=== PATIENT | female | born 1965 | race Caucasian/White ===

== ENCOUNTER 2025-03-04 21:23 | Inpatient (IN) | payer OTHER, SELFPAY ==
[2025-03-04 21:25] VITALS: BP 148/87; PULSE 83; RESP 18; TEMP 36.2; O2SAT 96
[2025-03-04 21:41] VITALS: BMI 42.5
[2025-03-04 22:30] VITALS: BP 125/64; PULSE 84; PULSE 86; RESP 18; TEMP 36.6; O2SAT 100
[2025-03-04 22:39] LABS: Hematocrit 45.8 % (37-47); Hemoglobin 15.4 g/dL (12.0-15.0); Immature Granulocytes Count 0.060 X10^3/uL (0.0-0.0); Mean Corp Hgb Conc 33.6 g/dL (32-36); Mean Corpuscular Volume 95.0 fL (81-99); Mean Platelet Vol. 9.1 fl (6.2-12.0); NRBC Flagged by Analyzer 0 % (0-5); Platelet Count 298 K/mm3 (150-450); RBC Distribution Width CV 13.4 % (11.6-14.6); RBC Distribution Width SD 47.4 fl (35.1-43.9); Red Blood Count 4.82 M/mm3 (4.2-5.4); White Blood Count 7.4 K/mm3 (4.4-11.0)
[2025-03-04 22:58] LABS: Barbiturate Urine NEGATIVE (< 200 ng/mL); Benzodiazepine Urine NEGATIVE (< 200 ng/mL); PCP Urine NEGATIVE (< 25 ng/mL); THC Urine NEGATIVE (< 50 ng/mL)
--- NOTE | 2025-03-04 23:00 | EX.ED.DYSGE1 ---
HPI History of Present Illness Chief Complaint: Substance Abuse Narrative Narrative: Patient is a 59-year-old female with past medical history of alcohol abuse, depression who presents to the emergency department for alcohol detox. Patient states that she has been drinking heavily for the last 5 days she states that she has been drinking with 1-1/2 bottles of wine and notes that these are large bottles. She states that this was recently her son's anniversary of his causing her to relapse she states that she has been sober for approximately 3 years now. Patient states that she has gone through alcohol withdrawal and has never had seizures nor as she ended up in the ICU. [facility] Medical History History of ETOH abuse Depression Home Medications ?Medication ?Instructions ?Recorded ?Last Taken ?Type aripiprazole 5 mg tablet (Abilify) 5 mg PO DAILY 03/04/25 Unknown History escitalopram oxalate 20 mg tablet 20 mg PO DAILY 03/04/25 Unknown History (Lexapro) quetiapine 100 mg tablet (Seroquel) 100 mg PO QHS 03/04/25 Unknown History trazodone 100 mg tablet 100 mg PO QHS 03/04/25 Unknown History Allergy/AdvReac Type Severity Reaction Status Date / Time No Known Allergies Allergy Verified 03/04/25 21:25 Surgical History Hx of tonsillectomy Hx of inguinal hernia repair Social History Smoking Status: Never smoker ROS ROS ED ROS Narrative Constitutional: Denies any fevers, chills, headaches Eyes: Denies change in vision double vision blurry vision Cardiovascular: Denies chest pain Respiratory: Denies coughing wheezing shortness of breath Abdomen: Denies abdominal pain nausea vomit diarrhea : Denies any urinary symptoms Neurological: Denies any numbness, wheeze, tingling Musculoskeletal: Denies back pain Skin: Denies any rashes or lesions EXAM Physical Exam Narrative Exam Narrative: General: Patient was lying in bed rest comfortably did not appear in acute distress Head: Atraumatic, normocephalic Eyes: PERRL bilaterally, EOMI black no conjunctival injection noted Neck: Soft, supple, trachea midline Cardiovascular: Regular rate and rhythm no murmurs gallops rubs noted Respiratory: Clear to auscultation bilaterally Abdomen: Soft, nontender, no tenderness to palpation Extremities: +5/5 strength noted in the bilateral upper and lower extremities Neurological: Patient follow commands knew that she was at [facility] the year is 2024 Skin: Warm, dry, intact no rashes or lesions noted Const Vital Signs: 03/04/25 21:25 Temperature 97.1 F L Temperature Source Temporal Pulse Rate 83 Respiratory Rate 18 Blood Pressure 148/87 H Blood Pressure Mean 107 Pulse Ox 96 Oxygen Delivery Method Room Air MDM MDM MDM Narrative Medical decision making narrative: Patient is a 59-year-old female who presented to the emergency department chief complaint of wanting alcohol detox. On the differential diagnose includes but not limited to alcohol intoxication, depression. Patient CBC reviewed and was largely unremarkable no evidence leukocytosis white blood count normal at 7.4, hemoglobin 15.4, plate count was noted be 298. Patient sodium was 143, potassium normal at 4.4, creatinine was 0.61. Patient's drug screen was negative. Patient alcohol level pending. Will discuss case with hospitalist for admission. Spoke with Dr. South for admission who accept patient. Patient notified is agreeable spinal course concerns answered. Lab Data Labs: Laboratory Results - last 24 hr 03/04/25 03/04/25 22:04 22:32 WBC 7.4 RBC 4.82 Hgb 15.4 H Hct 45.8 MCV 95.0 MCH 32.0 MCHC 33.6 RDW Std Deviation 47.4 H RDW Coeff of Debra 13.4 Plt Count 298 MPV 9.1 Immature Gran % (Auto) 0.800 Neut % (Auto) 70.1 H Lymph % (Auto) 25.9 [place] % (Auto) 2.7 Eos % (Auto) 0.1 Baso % (Auto) 0.4 Absolute Neuts (auto) 5.2 Absolute Lymphs (auto) 1.91 Nucleated RBC % 0 Sodium 143 Potassium 4.4 Chloride 107 Carbon Dioxide 20.0 L Anion Gap 16 H BUN 16 Creatinine 0.61 L Estim Creat Clear Calc 143.25 Est GFR (MDRD) Non-Af 104 BUN/Creatinine Ratio 26.1 H Glucose 131 H Calcium 8.4 Urine Opiates Screen NEGATIVE U Buprenorphine Qual NEGATIVE Ur Oxycodone Screen NEGATIVE Urine Methadone Screen NEGATIVE Urine Fentanyl Screen NEGATIVE Ur Barbiturates Screen NEGATIVE Ur Phencyclidine Scrn NEGATIVE Ur Amphetamines Screen NEGATIVE U Benzodiazepines Scrn NEGATIVE Urine Cocaine Screen NEGATIVE U Cannabinoids Screen NEGATIVE Discharge Plan Triage Chief Complaint: Substance Abuse ED Provider: Silviano Bowman Dx/Rx/DC Orders Clinical Impression: Depression, Alcohol abuse Prescriptions: No Action escitalopram oxalate [Lexapro] 20 mg tablet 20 mg PO DAILY quetiapine [Seroquel] 100 mg tablet 100 mg PO QHS trazodone 100 mg tablet 100 mg PO QHS aripiprazole [Abilify] 5 mg tablet 5 mg PO DAILY Primary Care Provider: Saul Reina Referrals: Saul Reina MD [Primary Care Provider] - Print Language: Greek Disposition Disposition: Acute Care Hospital [facility]
[2025-03-04 23:01] LABS: Anion Gap 16 (5-15); BUN 16 mg/dL (4-19); BUN/Creat Ratio 26.1 RATIO (10-20); Calcium,Total 8.4 mg/dL (7.6-11.0); Carbon Dioxide 20.0 mmol/L (21.0-32.0); Chloride 107 mmol/L (98-108); Estimated Creatinine Clearance 143.25 ml/min (50-250); Glucose 131 mg/dL (70-99); Potassium 4.4 mmol/L (3.3-5.1)
--- NOTE | 2025-03-04 23:13 | HP.PCM_ITS ---
HPI - General General Date of Admission: 03/04/25 Date of Service: 03/04/25 Chief Complaint: Alcohol abuse requesting detoxification HPI Narrative LAW CHRISTY, is a 59 F who presents to the emergency room with chief complaint of alcohol intoxication requesting withdrawal support for detox. Patient has a significant past medical history of alcohol abuse drinking approximately a large bottle and a half of of wine daily for the past 5 days. Patient has been sober for the proximately 3 years but recently relapsed due to depression and thoughts of her son's passing. Patient denies any chest pain, shortness of breath fevers or chills nausea vomiting or diarrhea at present time. Last time patient went through rehabilitation she did not require ICU. Patient denies any other illicit medications as well. [facility] Medical History History of ETOH abuse Depression Home Medications ?Medication ?Instructions ?Recorded ?Last Taken ?Type aripiprazole 5 mg tablet (Abilify) 5 mg PO DAILY 03/04 Unknown History escitalopram oxalate 20 mg tablet 20 mg PO DAILY 03/04 Unknown History (Lexapro) quetiapine 100 mg tablet (Seroquel) 100 mg PO QHS 02/06 04/01 Unknown History trazodone 100 mg tablet 100 mg PO QHS 03/04/25 Unkno wn History Allergy/AdvReac Type Severity Reaction Status Date / Time No Known Allergies Allergy Verified 03/04/25 21:25 Surgical History Hx of tonsillectomy Hx of inguinal hernia repair Social History Smoking Status: Never smoker ROS Constitutional Constitutional: Denies chills or fever(s) Eyes Eyes: Denies blurry vision ENT HEENT: Denies abnormal hearing Cardiovascular Cardiovascular: Denies chest pain Respiratory/Chest Respiratory/Chest: Denies shortness of breath at rest Gastrointestinal Gastrointestinal: Denies abdominal pain Genitourinary Genitourinary: Denies dysuria Musculoskeletal Musculoskeletal: Denies back pain Integumentary Integumentary: Reports dry skin Neurologic Neurologic: Denies abnormal speech Psychiatric Psychiatric: Reports depression Vital Signs Vital Signs Vital Signs: 03/04/25 21:25 Temperature 97.1 F L Temperature Source Temporal Pulse Rate 83 Respiratory Rate 18 Blood Pressure 148/87 H Blood Pressure Mean 107 Pulse Ox 96 Oxygen Delivery Method Room Air Weight Weight: 280 lb 3.32 oz Body Mass Index (BMI) 42.5 Physical Exam Const alert and no apparent distress General Appearance: cooperative and well developed HEENT normocephalic and head/scalp atraumatic Eyes PERRL Lymph Lymphatic: no lymphedema noted Resp normal respiratory effort Cardio regular rate, regular rhythm, S1 normal heart sound and S2 normal heart sound GI normal to inspection, nondistended, normoactive bowel sounds Extremity normal capillary refill Skin General Skin Exam: turgor normal Neuro no focal motor deficits and no sensory deficits noted Psych Mood & Affect: depressed Results Lab / Micro Data 03/04/25 22:32 03/04/25 22:32 Labs: Laboratory Results - last 24 hr 03/04/25 22:04: Urine Opiates Screen NEGATIVE, U Buprenorphine Qual NEGATIVE, Ur Oxycodone Screen NEGATIVE, Urine Methadone Screen NEGATIVE, Urine Fentanyl Screen NEGATIVE, Ur Barbiturates Screen NEGATIVE, Ur Phencyclidine Scrn NEGATIVE, Ur Amphetamines Screen NEGATIVE, U Benzodiazepines Scrn NEGATIVE, Urine Cocaine Screen NEGATIVE, U Cannabinoids Screen NEGATIVE 03/04/25 22:32: WBC 7.4, RBC 4.82, Hgb 15.4 H, Hct 45.8, MCV 95.0, MCH 32.0, MCHC 33.6, RDW Std Deviation 47.4 H, RDW Coeff of Debra 13.4, Plt Count 298, MPV 9.1, Immature Gran % (Auto) 0.800, Neut % (Auto) 70.1 H, Lymph % (Auto) 25.9, [place] % (Auto) 2.7, Eos % (Auto) 0.1, Baso % (Auto) 0.4, Absolute Neuts (auto) 5.2, Absolute Lymphs (auto) 1.91, Nucleated RBC % 0, Sodium 143, Potassium 4.4, Chloride 107, Carbon Dioxide 20.0 L, Anion Gap 16 H, BUN 16, Creatinine 0.61 L, Estim Creat Clear Calc 143.25, Est GFR (MDRD) Non-Af 104, BUN/Creatinine Ratio 26.1 H, Glucose 131 H, Calcium 8.4 Assessment & Plan Assessment/Plan (1) Alcohol abuse: (2) Depression: PLAN: Plan 1 alcohol abuse?requesting detoxification?admit patient to medical surgical floor Place patient on [facility] protocol and consult wrapper caser for discharge planning for post discharge care 2. Depression?continue routine antidepressant medication 3. DVT prophylaxis?patient at low risk presently and is ambulatory Charges/Coding Visit Charges Inpatient E&M: 73721 Init Hosp L2
[2025-03-04 23:22] LABS: Alcohol, Blood (Medical)-Serum 253.0 mg/dL (<=10.0)
[2025-03-04 23:49] VITALS: BP 121/67; PULSE 89; RESP 20; TEMP 36.6; O2SAT 94; BMI 41.8
[2025-03-05] MEDS: hydrOXYzine PAM 25 MG Capsule 50 MG PO (00:33)
[2025-03-05] MEDS: 0.9% Saline Lock 10 ML Syringe IV (00:33)
[2025-03-05 04:39] VITALS: BP 132/77; PULSE 88; RESP 16; TEMP 37.2; O2SAT 93
[2025-03-05 08:09] VITALS: BP 165/89; PULSE 98; RESP 18; TEMP 36.9; O2SAT 95
[2025-03-05] MEDS: Thiamine Hydrochloride 100 MG Tablet PO (08:15)
--- NOTE | 2025-03-05 08:23 | PCM.PN.HOSP ---
Subjective Subjective CIWA score 4, continue with the Ativan taper as she is on Abilify which can interact with phenobarbital Objective Data Objective Data Vital Signs: Vital Signs Temp Pulse Resp BP Pulse Ox O2 Del Method 98.4 F 98 18 165/89 H 95 Room Air 03/05/25 08:09 03/05/25 08:09 03/05/25 08:09 03/05/25 08:09 03/05/25 08:09 03/05/25 08:09 Oxygen Delivery Method Room Air Weight: 275 lb 9.245 oz Body Mass Index (BMI) 41.8 Intake & Output: Intake and Output for Last 24 Hours 03/04/25 03/05/25 03/06/25 03:59 03:59 03:59 Intake Total 400 / 400 Balance 400 / 400 Lab / Micro Data 03/04/25 22:32 03/04/25 22:32 Labs: Laboratory Results - last 24 hr 03/04/25 22:04: Urine Opiates Screen NEGATIVE, U Buprenorphine Qual NEGATIVE, Ur Oxycodone Screen NEGATIVE, Urine Methadone Screen NEGATIVE, Urine Fentanyl Screen NEGATIVE, Ur Barbiturates Screen NEGATIVE, Ur Phencyclidine Scrn NEGATIVE, Ur Amphetamines Screen NEGATIVE, U Benzodiazepines Scrn NEGATIVE, Urine Cocaine Screen NEGATIVE, U Cannabinoids Screen NEGATIVE 03/04/25 22:32: WBC 7.4, RBC 4.82, Hgb 15.4 H, Hct 45.8, MCV 95.0, MCH 32.0, MCHC 33.6, RDW Std Deviation 47.4 H, RDW Coeff of Debra 13.4, Plt Count 298, MPV 9.1, Immature Gran % (Auto) 0.800, Neut % (Auto) 70.1 H, Lymph % (Auto) 25.9, [place] % (Auto) 2.7, Eos % (Auto) 0.1, Baso % (Auto) 0.4, Absolute Neuts (auto) 5.2, Absolute Lymphs (auto) 1.91, Nucleated RBC % 0, Sodium 143, Potassium 4.4, Chloride 107, Carbon Dioxide 20.0 L, Anion Gap 16 H, BUN 16, Creatinine 0.61 L, Estim Creat Clear Calc 143.25, Est GFR (MDRD) Non-Af 104, BUN/Creatinine Ratio 26.1 H, Glucose 131 H, Calcium 8.4, Ethyl Alcohol 253.0 H Physical Exam Narrative General: Alert, Oriented x3, Cooperative, No apparent distress HEENT: Atraumatic, PERRLA, EOMI, Normocephalic Oral: Moist Mucosa Neck: Supple, No JVD Lungs: Clear to auscultation, Normal air movement, No rhonchi, No wheeze, No rales Cardiovascular: Regular rate, Regular Rhythm, Normal S1, Normal S2, No murmurs Abdomen: Soft, Non Tender, Non-Distended, No Hepato-splenomegaly Extremities: No edema, Capillary Refill Less than 3 Seconds Skin: No rashes, No breakdown Musculoskeletal: No Tenderness to Palpation of Joints or Extremities Neurological: No focal neurological deficits, Motor Exam 5/5 strength throughout, Sensory exam intact to light touch and pain Psych/Mental Status: Anxious Assessment & Plan Assessment/Plan (1) Alcohol abuse: (2) Depression: PLAN: Plan 1. Alcohol abuse requesting detox/anxiety/depression ? Continue with the alcohol withdrawal protocol ? Will have her follow-up with 180 ? Will continue with her home Uma Gustafson Seroquel DVT: Ambulation Charges/Coding Visit Charges Inpatient E&M: 53092 Subs Hosp L2
[2025-03-05 12:21] VITALS: BP 182/95; PULSE 105; RESP 18; TEMP 36.9; O2SAT 95
[2025-03-05 16:03] VITALS: BP 144/89; PULSE 84; RESP 18; TEMP 36.3; O2SAT 96
[2025-03-05 19:37] VITALS: BP 154/90; PULSE 78; RESP 16; TEMP 36.8; O2SAT 95
[2025-03-06 00:20] VITALS: BP 150/92; PULSE 79; RESP 16; TEMP 36.3; O2SAT 96
[2025-03-06] MEDS: 0.9% Saline Lock 10 ML Syringe IV (00:23)
[2025-03-06 04:34] VITALS: BP 163/97; PULSE 81; RESP 18; TEMP 37.2; O2SAT 97
[2025-03-06] MEDS: hydrOXYzine PAM 25 MG Capsule 50 MG PO ×2 (06:45→11:14)
[2025-03-06 08:24] VITALS: BP 161/93; PULSE 88; RESP 18; TEMP 36.9; O2SAT 95
[2025-03-06] MEDS: Thiamine Hydrochloride 100 MG Tablet PO (08:31)
--- NOTE | 2025-03-06 09:01 | PCM.PN.HOSP ---
Subjective Subjective Doing okay, CONNORWA score of 5 Objective Data Objective Data Vital Signs: Vital Signs Temp Pulse Resp BP Pulse Ox O2 Del Method 98.4 F 88 18 161/93 H 95 Room Air 03/06/25 08:24 03/06/25 08:24 03/06/25 08:24 03/06/25 08:24 03/06/25 08:24 03/06/25 08:29 Oxygen Delivery Method Room Air Weight: 275 lb 9.245 oz Body Mass Index (BMI) 41.8 Intake & Output: Intake and Output for Last 24 Hours 03/05/25 03/06/25 03/07/25 03:59 03:59 03:59 Intake Total 700 / 700 Balance 700 / 700 Lab / Micro Data 03/04/25 22:32 03/04/25 22:32 Physical Exam Narrative General: Alert, Oriented x3, Cooperative, No apparent distress HEENT: Atraumatic, PERRLA, EOMI, Normocephalic Oral: Moist Mucosa Neck: Supple, No JVD Lungs: Clear to auscultation, Normal air movement, No rhonchi, No wheeze, No rales Cardiovascular: Regular rate, Regular Rhythm, Normal S1, Normal S2, No murmurs Abdomen: Soft, Non Tender, Non-Distended, No Hepato-splenomegaly Extremities: No edema, Capillary Refill Less than 3 Seconds Skin: No rashes, No breakdown Musculoskeletal: No Tenderness to Palpation of Joints or Extremities Neurological: No focal neurological deficits, Motor Exam 5/5 strength throughout, Sensory exam intact to light touch and pain Psych/Mental Status: Anxious Assessment & Plan Assessment/Plan (1) Alcohol abuse: (2) Depression: PLAN: Plan 1. Alcohol abuse requesting detox/anxiety/depression ? Continue with the alcohol withdrawal protocol ? Will have her follow-up with 180, currently awaiting inpatient evaluation ? Will continue with her home Abilify, Lexapro, Seroquel DVT: Ambulation Charges/Coding Visit Charges Inpatient E&M: 90139 Subs Hosp L2
--- NOTE | 2025-03-06 11:19 | ADDICTION ---
Attempted to meet with patient on 03/05 and again on 03/06. Patient reported to feel too unwell on both occasions to discuss any discharge planning at this time. Will stop back in in the morning to discuss discharge planning. Will discuss Vivitrol as well.
[2025-03-06 14:00] VITALS: BP 135/82; PULSE 79; RESP 18; TEMP 36.7; O2SAT 95
[2025-03-06 20:00] VITALS: BP 168/100; PULSE 94; RESP 16; O2SAT 97
[2025-03-07 02:00] VITALS: BP 148/96; PULSE 81; RESP 16; TEMP 36.8; O2SAT 97
[2025-03-07] MEDS: Thiamine Hydrochloride 100 MG Tablet PO (07:55)
[2025-03-07 08:02] VITALS: BP 176/94; PULSE 98; RESP 16; TEMP 36.9; O2SAT 95
--- NOTE | 2025-03-07 08:45 | DCINST_ITS ---
Discharge Instructions DC O2, CPAP, BIPAP needs Home O2 Discharge instructions: No Dressing / Incision Discharge Activity: Return to Normal Activity Dressing / Incision Call your doctor if you observe: Fever of 101 or Higher, Shortness of breath, Dizziness, Fainting spells, Swelling in the ankles, Chest pain and Increased palpitations (irregular heartbeat) Follow Up Care Test Results: Test results from this visit will be discussed in further detail at your follow- up appointment, if applicable. Discharge Plan Admission Admit Date/Time: 03/04/25 23:17 Attending Provider: Kenn Ivory Primary Care Provider: Saul Reina Consulting Providers: Matty South Discharge Orders/Prescriptions Prescriptions: Continued escitalopram oxalate [Lexapro] 20 mg tablet 20 mg PO DAILY quetiapine [Seroquel] 100 mg tablet 100 mg PO QHS trazodone 100 mg tablet 100 mg PO QHS aripiprazole [Abilify] 5 mg tablet 5 mg PO DAILY tizanidine 4 mg tablet 4 mg PO QHS PRN PRN (Reason: back pain) Referrals / Follow Up: Saul Reina MD [Primary Care Provider] - Disposition Disposition (needs filled in before D/C Order can be placed): Home, Self Care
--- NOTE | 2025-03-07 08:46 | PCM.DC.SUM ---
Providers Date of Admission: 03/04/25 Primary Care Physician: Dr. Saul Reina MD Reason For Visit: ALCOHOL ABUSE DETOX Diagnosis Discharge Diagnosis (1) Alcohol abuse: Status: Acute Code(s): F10.10 - Alcohol abuse, uncomplicated (2) Depression: Status: Acute Code(s): F32.A - Depression, unspecified Medications at Discharge Home Medications aripiprazole 5 mg tablet (Abilify) 5 mg PO DAILY mental health 03/04/25 escitalopram oxalate 20 mg tablet (Lexapro) 20 mg PO DAILY depression 03/04/25 quetiapine 100 mg tablet (Seroquel) 100 mg PO QHS mood 03/04/25 trazodone 100 mg tablet 100 mg PO QHS mood 03/04/25 tizanidine 4 mg tablet 4 mg PO QHS PRN PRN back pain 03/05/25 Hospital Course Operations None Summary of Care Provided Minutes Spent on Discharge: 32 Hospital Course: Per HPI: LAW CHRISTY, is a 59 F who presents to the emergency room with chief complaint of alcohol intoxication requesting withdrawal support for detox. Patient has a significant past medical history of alcohol abuse drinking approximately a large bottle and a half of of wine daily for the past 5 days. Patient has been sober for the proximately 3 years but recently relapsed due to depression and thoughts of her son's passing. Patient denies any chest pain, shortness of breath fevers or chills nausea vomiting or diarrhea at present time. Last time patient went through rehabilitation she did not require ICU. Patient denies any other illicit medications as well. Hospital Course: 1. Alcohol with drawl requesting detox/anxiety/depression?59-year-old female presented to the hospital requesting detox from alcohol. She managed 3 days on the alcohol withdrawal protocol however today she would like to be discharged home. She does not want to try Vivitrol and is not interested in meeting with 180 to develop a outpatient discharge plan. Given these limitations I discussed with her the possibility for discharge and she expressed understanding of the risks and benefits of going home and not completing counseling or therapy. She would like to be discharged home today. On discharge, her CIWA score was a 9 which was discussed with her however she would still prefer to be discharged home. Physical Exam Narrative General: Alert, Oriented x3, Cooperative, No apparent distress, restless HEENT: Atraumatic, PERRLA, EOMI, Normocephalic Oral: Moist Mucosa Neck: Supple, No JVD Lungs: Clear to auscultation, Normal air movement, No rhonchi, No wheeze, No rales Cardiovascular: Regular rate, Regular Rhythm, Normal S1, Normal S2, No murmurs Abdomen: Soft, Non Tender, Non-Distended, No Hepato-splenomegaly Extremities: No edema, Capillary Refill Less than 3 Seconds Skin: No rashes, No breakdown Musculoskeletal: No Tenderness to Palpation of Joints or Extremities Neurological: No focal neurological deficits, Motor Exam 5/5 strength throughout, Sensory exam intact to light touch and pain Psych/Mental Status: Anxious Weight / BMI Weight Weight: 275 lb 9.245 oz Body Mass Index (BMI) 41.8 ABG / Lab / Microbiology Data 03/04/25 22:32 03/04/25 22:32 D/C Instructions Call your doctor if you observe: Fever of 101 or Higher, Shortness of breath, Dizziness, Fainting spells, Swelling in the ankles, Chest pain and Increased palpitations (irregular heartbeat) DC O2, CPAP, BIPAP Needs Home O2 Discharge instructions: No Meaningful Use Info Meaningful Use Meaningful Use Diagnoses (Choose all that apply): None applicable Discharge Plan Admission Admit Date/Time: 03/04/25 23:17 Attending Provider: Kenn Ivory Primary Care Provider: Saul Reina Consulting Providers: Matty South Discharge Orders/Prescriptions Prescriptions: Continued escitalopram oxalate [Lexapro] 20 mg tablet 20 mg PO DAILY quetiapine [Seroquel] 100 mg tablet 100 mg PO QHS trazodone 100 mg tablet 100 mg PO QHS aripiprazole [Abilify] 5 mg tablet 5 mg PO DAILY tizanidine 4 mg tablet 4 mg PO QHS PRN PRN (Reason: back pain) Referrals / Follow Up: Saul Reina MD [Primary Care Provider] - Disposition Disposition (needs filled in before D/C Order can be placed): Home, Self Care Charges/Coding Visit Charges Inpatient E&M: 30760 Disch Hosp >30min
== END 2025-03-07 10:10 | disposition home or self-care (01) | DRG 897 ==
LOC: ED 23:10 → MS3 23:25
PROVIDERS: Admitting Provider Family Medicine; Emergency Provider Emergency Medicine; PCP Family Medicine Geriatric Medicine; Visit Provider Family Medicine
DX: F10.10 Alcohol abuse, uncomplicated (principal); Z68.41 Body mass index [BMI] 40.0-44.9, adult; E66.813 Obesity, class 3; F32.A Depression, unspecified; F41.9 Anxiety disorder, unspecified; Z79.899 Other long term (current) drug therapy; Y90.8 Blood alcohol level of 240 mg/100 ml or more
CPT/HCPCS: 80048; 80307; 82077; 85025; 97802; 99283; A4216